=== PATIENT | male | born 1955 | race African-American/Black ===

== ENCOUNTER 2017-01-02 14:52 | Inpatient (IN) | payer OTHER ==
[2017-01-02 18:18] VITALS: BMI 22.1
--- NOTE | 2017-01-02 18:30 | HP ---
CIWA Score - CIWA Score Nausea/Vomitin Muscle Tremors: 3 Anxiety: 3 Agitation: 3 Paroxysmal Sweats: 2 Orientation: 0-Oriented Tacttile Disturbances: 2-Mild Itch/Numbness/Burn Auditory Disturbances: 2-Mild Harshness/Frighten Visual Disturbances: 2-Mild Sensitivity Headache: 2-Mild CIWA-Ar Total Score: 22 Admission ROS BHS - HPI Chief Complaint: i need help to stop drinking alcohol,seen in [facility] last night refer for detox Allergies/Adverse Reactions: Allergies Allergy/AdvReac Type Severity Reaction Status Date / Time iodine Allergy Severe Rash Verified 01/02/17 19:13 Penicillins Allergy Severe Swelling Verified 01/02/17 19:13 History of Present Illness: this 61 years old male with alcohol dependence,withdrawal symptom,last detox 20 years ago seen in [place] last night last seizure on 12/31/16 no significant period of sobriety s/p surgery of spine in 1992,chronic low back pain and neck pain ambulation with cane for 2 years - Ebola screening Have you traveled outside of the country in the last 21 days: No Have you had contact with anyone from an Ebola affected area: No Do you have a fever: No - Review of Systems Constitutional: Loss of Appetite, Malaise, Night Sweats, Changes in sleep, Weakness EENT: reports: Nose Congestion Respiratory: reports: No Symptoms reported Cardiac: reports: Palpitations GI: reports: Diarrhea, Nausea, Vomiting, Abdominal cramping : reports: No Symptoms Reported Musculoskeletal: reports: Back Pain, Muscle Pain, Other (s/p back surgery) Integumentary: reports: Dryness Neuro: reports: Headache, Tremors Endocrine: reports: No Symptoms Reported Hematology: reports: No Symptoms Reported Psychiatric: reports: No Sypmtoms Reported, Judgement Intact, Mood/Affect Appropiate, Anxious, Depressed Patient History - Patient Medical History Hx Anemia: No Hx Asthma: No Hx Chronic Obstructive Pulmonary Disease (COPD): No Hx Cancer: No Hx Cardiac Disorders: No Hx Congestive Heart Failure: No Hx Hypertension: No Hx Hypercholesterolemia: No Hx Pacemaker: No HX Cerebrovascular Accident: No Hx Seizures: Yes (last 12/31/16) Hx Dementia: No Hx Diabetes: No Hx Gastrointestinal Disorders: No Hx Liver Disease: Yes (hepatitis c) Hx Genitourinary Disorders: No Hx Sexually Transmitted Disorders: No Hx Renal Disease (ESRD): No Hx Thyroid Disease: No Hx Human Immunodeficiency Virus (HIV): No (last tested 09/01 negative) Hx Hepatitis C: Yes Hx Depression: Yes (anxiety) Hx Suicide Attempt: No Hx Bipolar Disorder: No Hx Schizophrenia: No Other Medical History: no suicidal,no homicidal,ambulation with cane,frequent falls,low back and n - Patient Surgical History Past Surgical History: Yes Hx Orthopedic Surgery: Yes (back surgery in 1992) - PPD History Previous Implant?: Yes Documented Results: Negative w/o proof Implanted On Prior [facility] Admission?: No PPD to be Administered?: Yes - Smoking Cessation Smoking history: Current every day smoker Have you smoked in the past 12 months: Yes Aproximately how many cigarettes per day: 2 Cigars Per Day: 0 Hx Chewing Tobacco Use: No Initiated information on smoking cessation: Yes 'Breaking Loose' booklet given: 01/02/17 - Substance & Tx. History Hx Alcohol Use: Yes Hx Substance Use: No Substance Use Type: Alcohol Hx Substance Use Treatment: Yes (20 years ago) - Substances Abused Alcohol Route: Oral Frequency: Daily Amount used: 2pints of vodka/20 ozs of beer Age of first use: 13 Date of Last Use: 12/31/16 Family Disease History - Family Disease History Family Disease History: Other: Father (alcohol,) Admission Physical Exam S - Vital Signs Vital Signs: Vital Signs - 24 hr 01/02/17 18:12 Temperature 96 F L Pulse Rate 114 H Respiratory 20 Rate Blood Pressure 182/97 - Physical General Appearance: Yes: Moderate Distress, Tremorous, Irritable, Sweating, Anxious HEENTM: Yes: Normal ENT Inspection, OLEG, Pharynx Normal Respiratory: Yes: Lungs Clear, Normal Breath Sounds, No Respiratory Distress Neck: Yes: Within Normal Limits, Supple, Trachea in good position Breast: Yes: Within Normal Limits Cardiology: Yes: Within Normal Limits, Regular Rhythm, Regular Rate, S1, S2 Abdominal: Yes: Within Normal Limits, Normal Bowel Sounds, Non Tender, Flat, Soft Genitourinary: Yes: Within Normal Limits Back: Yes: Muscle Spasm Musculoskeletal: Yes: Back pain, Muscle Pain Extremities: Yes: Within Normal Limits, Normal Range of Motion, Tremors 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 intact, Fully Oriented, Alert, Motor Strength 5/5 Integumentary: Yes: Dry Lymphatic: Yes: Within Normal Limits - Diagnostic (1) Alcohol dependence with uncomplicated withdrawal Current Visit: Yes Status: Acute (2) Alcohol related seizure Current Visit: Yes Status: Acute (3) Chronic low back pain Current Visit: Yes Status: Acute (4) Chronic neck pain Current Visit: Yes Status: Acute (5) Previous back surgery Current Visit: Yes Status: Acute (6) Hepatitis C Current Visit: Yes Status: Acute (7) Anxiety and depression Current Visit: Yes Status: Acute (8) Use of cane as ambulatory aid Current Visit: Yes Status: Acute (9) Frequent falls Current Visit: Yes Status: Acute Cleared for Admission [facility] - Detox or Rehab [facility] Level of Care: Medically Managed Detox Regimen/Protocol: Librium [facility] Breath Alcohol Content Breath Alcohol Content: 0 Urine Drug Screen - Results Drug Screen Negative: No Urine Drug Screen Results: BZO-Benzodiazepines
[2017-01-02] MEDS ORDERED: ACETAMINOPHEN 325 MG TABLET (FP) PO PRN (18:45)
[2017-01-02] MEDS ORDERED: LOPERAMIDE HCL 2 MG CAPSULE PO PRN (18:45)
[2017-01-02] MEDS ORDERED: MAGNESIUM HYDROX 2400MG/30ML ORAL SUSPENSION 30 ML CUP PO PRN (18:45)
[2017-01-02] MEDS ORDERED: hydrOXYzine PAMOATE 25 MG CAPSULE (FP) PO PRN (18:45)
[2017-01-02] MEDS ORDERED: guaiFENesin/D-METHORPHAN HB 10 ML UNIT-DOSE CUPS PO PRN (18:45)
[2017-01-02] MEDS ORDERED: MAG HYDROX/AL HYDROX/SIMETH 30 ML UNIT-DOSE CUP PO PRN (18:45)
[2017-01-02] MEDS ORDERED: MENTHOL/PHENOL 1 EACH UD MM PRN (18:45)
[2017-01-02] MEDS ORDERED: MAGNESIUM CITRATE 300 ML BOTTLE PO PRN (18:45)
[2017-01-02] MEDS ORDERED: chlordiazePOXIDE HCL 25 MG CAPSULE PO ONE (18:45)
[2017-01-02] MEDS ORDERED: P-EPHED 60MG/TRIPROLIDI 2.5MG TABLET PO PRN (18:45)
[2017-01-02] MEDS: IBUPROFEN 400 MG TABLET (FP) PO PRN (22:51)
[2017-01-02] MEDS: THIAMINE HCL 100 MG TABLET (FP) PO SCH (22:51)
[2017-01-02] MEDS: chlordiazePOXIDE HCL 25 MG CAPSULE PO SCH (22:52)
[2017-01-03] MEDS: chlordiazePOXIDE HCL 25 MG CAPSULE PO SCH ×4 (06:54→23:52)
[2017-01-03] MEDS: PRENATAL VITAMINS W/ FOLIC ACID TABLET (FP) PO SCH (09:52)
[2017-01-03 10:32] LABS: ALBUMIN 3.2 g/dl (3.4-5.0); ANION GAP 8 (8-16); BILIRUBIN,TOTAL 0.6 mg/dL (0.2-1.0); CALCIUM 8.7 mg/dL (8.5-10.1); CO2 30 mmol/L (21-32); COCKROFT - GAULT 74.65; GLUCOSE,RANDOM 108 mg/dL (74-106); SGOT/AST 81 U/L (15-37); SGPT/ALT 53 U/L (12-78); TOT PROT 7.4 g/dl (6.4-8.2)
[2017-01-03 10:33] LABS: ALK PHOS 94 U/L (45-117)
--- NOTE | 2017-01-03 11:06 | EKG ---
Test Reason : Blood Pressure : / mmHG Vent. Rate : 102 BPM Atrial Rate : 102 BPM P-R Int : 160 ms QRS Dur : 080 ms QT Int : 370 ms P-R-T Axes : 058 003 -06 degrees QTc Int : 482 ms SINUS TACHYCARDIA WITH PREMATURE VENTRICULAR OR ABERRANTLY CONDUCTED COMPLEXES SEPTAL INFARCT , AGE UNDETERMINED POOR R WAVE PROGRESSION ABNORMAL ECG NO PREVIOUS ECGS AVAILABLE Confirmed by MD KAYLAN, LORNA ([id number]) on 01/03/2017 11:05:57 AM Referred By: Confirmed By:LORNA KIMBROUGH MD
[2017-01-03 11:18] LABS: MCH 27.2 pg (25.7-33.7); MCHC 32.1 g/dl (32.0-35.9); MEAN CELL VOLUME 84.8 fl (80-96); MEAN PLT VOLUME 8.6 fl (7.5-11.1); PLATELET COUNT 426 K/MM3 (134-434); RDW 20.8 % (11.9-15.9); WHITE BLOOD COUNT 7.6 K/mm3 (4.0-10.0)
[2017-01-03 11:28] LABS: HIV 1 & 2 AB NEGATIVE; HIV 1 AGp24 NEGATIVE
--- NOTE | 2017-01-03 11:40 | PN ---
[facility] CIWA - CIWA Score Nausea/Vomitin Muscle Tremors: 3 Anxiety: 3 Agitation: 2 Paroxysmal Sweats: 1-Minimal Palms Moist Orientation: 0-Oriented Tacttile Disturbances: 1-Very Mild Itch/Numbness Auditory Disturbances: 1-Very Mild Visual Disturbances: 1-Very Mild Sensitivity Headache: 2-Mild CIWA-Ar Total Score: 17 BHS Progress Note (SOAP) Subjective: ALERT,IRRITABLE,ANXIOUS,INTERRUPTED SLEEP,TREMOR Objective: 01/03/17 11:36 Vital Signs Temperature 98 F 01/03/17 09:37 Pulse Rate 114 H 01/03/17 09:37 Respiratory Rate 20 01/03/17 09:37 Blood Pressure 148/117 01/03/17 09:37 O2 Sat by Pulse Oximetry (%) EKG SINUS TACHYCARDIA 102/MIN NO CHEST PAIN,NO SOB,NO DIZZINESS Laboratory Last Values WBC 7.6 K/mm3 (4.0-10.0) 01/03/17 07:40 RBC 3.37 M/mm3 (4.00-5.60) L 01/03/17 07:40 Hgb 9.2 GM/dL (11.7-16.9) L 01/03/17 07:40 Hct 28.6 % (35.4-49) L 01/03/17 07:40 MCV 84.8 fl (80-96) 01/03/17 07:40 MCHC 32.1 g/dl (32.0-35.9) 01/03/17 07:40 RDW 20.8 % (11.9-15.9) H 01/03/17 07:40 Plt Count 426 K/MM3 (134-434) 01/03/17 07:40 MPV 8.6 fl (7.5-11.1) 01/03/17 07:40 Sodium 140 mmol/L (136-145) 01/03/17 07:40 Potassium 4.6 mmol/L (3.5-5.1) 01/03/17 07:40 Chloride 102 mmol/L (98-107) 01/03/17 07:40 Carbon Dioxide 30 mmol/L (21-32) 01/03/17 07:40 Anion Gap 8 (8-16) 01/03/17 07:40 BUN 14 mg/dL (7-18) 01/03/17 07:40 Creatinine 1.0 mg/dL (0.7-1.3) 01/03/17 07:40 Creat Clearance w eGFR > 60 (>60) 01/03/17 07:40 Random Glucose 108 mg/dL (74-106) H 01/03/17 07:40 Calcium 8.7 mg/dL (8.5-10.1) 01/03/17 07:40 Total Bilirubin 0.6 mg/dL (0.2-1.0) 01/03/17 07:40 AST 81 U/L (15-37) H 01/03/17 07:40 ALT 53 U/L (12-78) 01/03/17 07:40 Alkaline Phosphatase 94 U/L (45-117) 01/03/17 07:40 Total Protein 7.4 g/dl (6.4-8.2) 01/03/17 07:40 Albumin 3.2 g/dl (3.4-5.0) L 01/03/17 07:40 HIV 1&2 Antibody Screen Negative 01/03/17 07:40 HIV P24 Antigen Negative 01/03/17 07:40 Assessment: 01/03/17 11:38 WITHDRAWAL SYMPTOM HISTORY OF ANEMIA Plan: WILL CONTINUE DETOX,FALL PRECAUTION,FERROUS SULFATE 325 MGS PO BID,WHEELCHAIR AMBULATION NEEDED
[2017-01-03 12:27] LABS: ANISOCYTOSIS 2+; HYPOCHROMIA 3+; MICROCYTOSIS 1+; TARGET CELLS 2+
[2017-01-03] MEDS: chlordiazePOXIDE HCL 25 MG CAPSULE PO PRN (12:33)
[2017-01-03] MEDS: FERROUS SO4 325 MG TABLET (FP) PO SCH ×2 (12:34→22:45)
[2017-01-03 18:09] LABS: URINE APPEARANCE CLOUDY; URINE BILIRUBIN NEGATIVE (NEGATIVE); URINE BLOOD 1+ (NEGATIVE); URINE COLOR DKYELLOW; URINE GLUCOSE (UA) NEGATIVE (NEGATIVE); URINE KETONE NEGATIVE (NEGATIVE); URINE LEUK ESTERASE 3+ (NEGATIVE); URINE NITRITE NEGATIVE (NEGATIVE); URINE PROTEIN 1+ (NEGATIVE); URINE UROBILINOGEN 4.0 E.U/dl E.U./dl (0.2-1.0)
[2017-01-03 18:24] LABS: URINE BACTERIA MODERATE /hpf (NONE SEEN); URINE MUCUS RARE; URINE RBC 274 /hpf (0-3); URINE WBC 1354 /hpf (3-5)
[2017-01-03] MEDS: THIAMINE HCL 100 MG TABLET (FP) PO SCH (22:45)
[2017-01-04] MEDS: chlordiazePOXIDE HCL 25 MG CAPSULE PO SCH ×3 (06:30→18:00)
[2017-01-04] MEDS: SULFAMETHOXAZOLE/TRIMETHOPRIM 800MG/160MG D.S. TABLET PO SCH ×2 (10:26→22:36)
[2017-01-04] MEDS: PRENATAL VITAMINS W/ FOLIC ACID TABLET (FP) PO SCH (10:26)
[2017-01-04] MEDS: chlordiazePOXIDE HCL 25 MG CAPSULE PO PRN (10:26)
[2017-01-04] MEDS: FERROUS SO4 325 MG TABLET (FP) PO SCH ×2 (10:28→22:36)
--- NOTE | 2017-01-04 11:20 | PN ---
S CIWA - CIWA Score Nausea/Vomitin Muscle Tremors: 3 Anxiety: 2 Agitation: 2 Paroxysmal Sweats: 1-Minimal Palms Moist Orientation: 0-Oriented Tacttile Disturbances: 1-Very Mild Itch/Numbness Auditory Disturbances: 1-Very Mild Visual Disturbances: 1-Very Mild Sensitivity Headache: 2-Mild CIWA-Ar Total Score: 16 S Progress Note (SOAP) Subjective: ALERT,IRRITABLE,ANXIOUS,INTERRUPTED SLEEP,TREMOR Objective: 01/04/17 11:16 Vital Signs Temperature 98.4 F 01/04/17 09:54 Pulse Rate 104 H 01/04/17 09:54 Respiratory Rate 18 01/04/17 09:54 Blood Pressure 133/80 01/04/17 09:54 O2 Sat by Pulse Oximetry (%) Laboratory Last Values WBC 7.6 K/mm3 (4.0-10.0) 01/03/17 07:40 RBC 3.37 M/mm3 (4.00-5.60) L 01/03/17 07:40 Hgb 9.2 GM/dL (11.7-16.9) L 01/03/17 07:40 Hct 28.6 % (35.4-49) L 01/03/17 07:40 MCV 84.8 fl (80-96) 01/03/17 07:40 MCHC 32.1 g/dl (32.0-35.9) 01/03/17 07:40 RDW 20.8 % (11.9-15.9) H 01/03/17 07:40 Plt Count 426 K/MM3 (134-434) 01/03/17 07:40 MPV 8.6 fl (7.5-11.1) 01/03/17 07:40 Hypochromic-Microcytic 3+ 01/03/17 07:40 Anisocytosis 2+ 01/03/17 07:40 Microcytosis 1+ 01/03/17 07:40 Target Cells 2+ 01/03/17 07:40 Sodium 140 mmol/L (136-145) 01/03/17 07:40 Potassium 4.6 mmol/L (3.5-5.1) 01/03/17 07:40 Chloride 102 mmol/L (98-107) 01/03/17 07:40 Carbon Dioxide 30 mmol/L (21-32) 01/03/17 07:40 Anion Gap 8 (8-16) 01/03/17 07:40 BUN 14 mg/dL (7-18) 01/03/17 07:40 Creatinine 1.0 mg/dL (0.7-1.3) 01/03/17 07:40 Creat Clearance w eGFR > 60 (>60) 01/03/17 07:40 Random Glucose 108 mg/dL (74-106) H 01/03/17 07:40 Calcium 8.7 mg/dL (8.5-10.1) 01/03/17 07:40 Total Bilirubin 0.6 mg/dL (0.2-1.0) 01/03/17 07:40 AST 81 U/L (15-37) H 01/03/17 07:40 ALT 53 U/L (12-78) 01/03/17 07:40 Alkaline Phosphatase 94 U/L (45-117) 01/03/17 07:40 Total Protein 7.4 g/dl (6.4-8.2) 01/03/17 07:40 Albumin 3.2 g/dl (3.4-5.0) L 01/03/17 07:40 Urine Color Dkyellow 01/03/17 17:00 Urine Appearance Cloudy 01/03/17 17:00 Urine pH 7.0 (5.0-8.0) 01/03/17 17:00 Ur Specific [place] 1.010 (1.005-1.025) 01/03/17 17:00 Urine Protein 1+ (NEGATIVE) H 01/03/17 17:00 Urine Glucose (UA) Negative (NEGATIVE) 01/03/17 17:00 Urine Ketones Negative (NEGATIVE) 01/03/17 17:00 Urine Blood 1+ (NEGATIVE) H 01/03/17 17:00 Urine Nitrite Negative (NEGATIVE) 01/03/17 17:00 Urine Bilirubin Negative (NEGATIVE) 01/03/17 17:00 Urine Urobilinogen 4.0 e.u/dl E.U./dl (0.2-1.0) 01/03/17 17:00 Ur Leukocyte Esterase 3+ (NEGATIVE) H 01/03/17 17:00 Urine RBC 274 /hpf (0-3) 01/03/17 17:00 Urine WBC 1354 /hpf (3-5) 01/03/17 17:00 Ur Epithelial Cells Rare /hpf (FEW) 01/03/17 17:00 Urine Bacteria Moderate /hpf (NONE SEEN) 01/03/17 17:00 Urine Mucus Rare 01/03/17 17:00 RPR Titer Nonreactive (NONREACTIVE) 01/03/17 07:40 HIV 1&2 Antibody Screen Negative 01/03/17 07:40 HIV P24 Antigen Negative 01/03/17 07:40 Assessment: 01/04/17 11:17 WITHDRAWAL SYMPTOM Plan: CONTINUE DETOX,URINE FOR C/S UTI,START ON BACTRIM DS 1 TAB PO BID,ENCOURAGE ORAL FLUID, ON IRON,SERUM IRON,TIBC,RETICULOCYTE COUNT,FOLIC ACID
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
[2017-01-04] MEDS: chlordiazePOXIDE 5 MG CAPSULE PO SCH (22:36)
[2017-01-04] MEDS: THIAMINE HCL 100 MG TABLET (FP) PO SCH (22:36)
[2017-01-05] MEDS: chlordiazePOXIDE 5 MG CAPSULE PO SCH ×3 (05:35→19:11)
[2017-01-05] MEDS: PRENATAL VITAMINS W/ FOLIC ACID TABLET (FP) PO SCH (10:48)
[2017-01-05] MEDS: SULFAMETHOXAZOLE/TRIMETHOPRIM 800MG/160MG D.S. TABLET PO SCH ×2 (10:49→22:44)
[2017-01-05] MEDS: FERROUS SO4 325 MG TABLET (FP) PO SCH ×2 (10:50→22:44)
--- NOTE | 2017-01-05 12:01 | PN ---
S Progress Note (SOAP) Subjective: ALERT,IRRITABLE,ANXIOUS,INTERRUPTED SLEEP,TREMOR Objective: 01/05/17 11:59 Vital Signs Temperature 97.5 F L 01/05/17 10:27 Pulse Rate 106 H 01/05/17 10:27 Respiratory Rate 18 01/05/17 10:27 Blood Pressure 134/88 01/05/17 10:27 O2 Sat by Pulse Oximetry (%) Assessment: 01/05/17 12:00 WITHDRAWAL SYMPTOM Plan: CONTINUE DETOX,AMBULATION WITH CANE
[2017-01-05] MEDS: diphenhydrAMINE HCL 50 MG CAPSULE PO PRN (22:43)
[2017-01-05] MEDS: chlordiazePOXIDE HCL 10 MG CAPSULE PO SCH (22:44)
[2017-01-05] MEDS: THIAMINE HCL 100 MG TABLET (FP) PO SCH (22:44)
[2017-01-06 06:06] LABS: SERUM IRON 27 ug/dL (38-169); TOTAL IRON BINDING CAPACITY 315 ug/dL (250-450); UIBC 288 ug/dL (111-343)
[2017-01-06] MEDS: chlordiazePOXIDE HCL 10 MG CAPSULE PO SCH ×3 (07:55→19:12)
[2017-01-06] MEDS: FERROUS SO4 325 MG TABLET (FP) PO SCH ×2 (10:51→22:39)
[2017-01-06] MEDS: SULFAMETHOXAZOLE/TRIMETHOPRIM 800MG/160MG D.S. TABLET PO SCH ×2 (10:51→22:39)
[2017-01-06] MEDS: PRENATAL VITAMINS W/ FOLIC ACID TABLET (FP) PO SCH (10:52)
--- NOTE | 2017-01-06 11:58 | PN ---
S Progress Note (SOAP) Subjective: interrupted sleep, sweats, shakes , Objective: 01/06/17 11:56 Vital Signs Temperature 97.3 F L 01/06/17 10:41 Pulse Rate 99 H 01/06/17 10:41 Respiratory Rate 20 01/06/17 10:41 Blood Pressure 143/73 01/06/17 10:41 O2 Sat by Pulse Oximetry (%) Laboratory Tests 01/03/17 01/03/17 01/03/17 07:40 07:40 07:40 WBC 7.6 RBC 3.37 L Hgb 9.2 L Hct 28.6 L MCV 84.8 MCHC 32.1 RDW 20.8 H Plt Count 426 MPV 8.6 Hypochromic-Microcytic 3+ Anisocytosis 2+ Microcytosis 1+ Target Cells 2+ Retic Count Sodium 140 Potassium 4.6 Chloride 102 Carbon Dioxide 30 Anion Gap 8 BUN 14 Creatinine 1.0 Creat Clearance w eGFR > 60 Random Glucose 108 H Calcium 8.7 Iron TIBC Iron Saturation Total Bilirubin 0.6 AST 81 H ALT 53 Alkaline Phosphatase 94 Total Protein 7.4 Albumin 3.2 L Serum Folate Urine Color Urine Appearance Urine pH Ur Specific [place] Urine Protein Urine Glucose (UA) Urine Ketones Urine Blood Urine Nitrite Urine Bilirubin Urine Urobilinogen Ur Leukocyte Esterase Urine RBC Urine WBC Ur Epithelial Cells Urine Bacteria Urine Mucus RPR Titer Nonreactive HIV 1&2 Antibody Screen HIV P24 Antigen 01/03/17 01/03/17 01/05/17 07:40 17:00 07:00 WBC RBC Hgb Hct MCV MCHC RDW Plt Count MPV Hypochromic-Microcytic Anisocytosis Microcytosis Target Cells Retic Count Sodium Potassium Chloride Carbon Dioxide Anion Gap BUN Creatinine Creat Clearance w eGFR Random Glucose Calcium Iron 27 L TIBC 315 Iron Saturation 9 L Total Bilirubin AST ALT Alkaline Phosphatase Total Protein Albumin Serum Folate Urine Color Dkyellow Urine Appearance Cloudy Urine pH 7.0 Ur Specific [place] 1.010 Urine Protein 1+ H Urine Glucose (UA) Negative Urine Ketones Negative Urine Blood 1+ H Urine Nitrite Negative Urine Bilirubin Negative Urine Urobilinogen 4.0 e.u/dl Ur Leukocyte Esterase 3+ H Urine RBC 274 Urine WBC 1354 Ur Epithelial Cells Rare Urine Bacteria Moderate Urine Mucus Rare RPR Titer HIV 1&2 Antibody Screen Negative HIV P24 Antigen Negative 01/05/17 01/05/17 07:00 07:00 WBC RBC Hgb Hct MCV MCHC RDW Plt Count MPV Hypochromic-Microcytic Anisocytosis Microcytosis Target Cells Retic Count 2.20 H Sodium Potassium Chloride Carbon Dioxide Anion Gap BUN Creatinine Creat Clearance w eGFR Random Glucose Calcium Iron TIBC Iron Saturation Total Bilirubin AST ALT Alkaline Phosphatase Total Protein Albumin Serum Folate 16 Urine Color Urine Appearance Urine pH Ur Specific [place] Urine Protein Urine Glucose (UA) Urine Ketones Urine Blood Urine Nitrite Urine Bilirubin Urine Urobilinogen Ur Leukocyte Esterase Urine RBC Urine WBC Ur Epithelial Cells Urine Bacteria Urine Mucus RPR Titer HIV 1&2 Antibody Screen HIV P24 Antigen pt aox3 but with tremors Assessment: 01/06/17 11:56 withdrawal sx;s -will keep pt an additional day because of termors and anemia . 01/06/17 11:57 Plan: cont. detox increase fluids cont fe cont librium d/c in am
[2017-01-06] MEDS: diphenhydrAMINE HCL 50 MG CAPSULE PO PRN (22:39)
[2017-01-06] MEDS: THIAMINE HCL 100 MG TABLET (FP) PO SCH (22:39)
[2017-01-07] MEDS: IBUPROFEN 400 MG TABLET (FP) PO PRN (06:30)
[2017-01-07 06:37] VITALS: BP 133/73; PULSE 84; TEMP 96.6
--- NOTE | 2017-01-07 08:26 | DS ---
[facility] Detox Discharge Summary Admission Date: 01/02/17 Discharge Date: 01/07/17 - History Present History: Alcohol Dependence - Physical Exam Results Vital Signs: Vital Signs Temperature 96.6 F L 01/07/17 06:00 Pulse Rate 84 01/07/17 06:00 Respiratory Rate 18 01/07/17 06:00 Blood Pressure 133/73 01/07/17 06:00 O2 Sat by Pulse Oximetry (%) - Treatment Hospital Course: Detox Protocol Followed, Detoxed Safely, Responded well, Discharged Condition Good, Rehab Referral Accepted - Medication Discharge Medications: Ambulatory Orders NK [No Known Home Medication] 01/02/17 - Diagnosis (1) Alcohol dependence with uncomplicated withdrawal Current Visit: Yes Status: Chronic (2) Alcohol related seizure Current Visit: Yes Status: Acute (3) Alcohol-induced mood disorder Current Visit: Yes Status: Acute (4) Anxiety and depression Current Visit: Yes Status: Acute (5) Insomnia Current Visit: Yes Status: Acute (6) Chronic low back pain Current Visit: Yes Status: Chronic Qualifiers: Back pain laterality: unspecified Sciatica presence: unspecified whether sciatica present Qualified Code(s): M54.5 - Low back pain; G89.29 - Other chronic pain (7) Chronic neck pain Current Visit: Yes Status: Chronic (8) Frequent falls Current Visit: Yes Status: Chronic (9) Hepatitis C Current Visit: Yes Status: Chronic Qualifiers: Viral hepatitis chronicity: chronic Hepatic coma status: without hepatic coma Qualified Code(s): B18.2 - Chronic viral hepatitis C (10) Use of cane as ambulatory aid Current Visit: Yes Status: Chronic (11) Previous back surgery Current Visit: No Status: Chronic - AMA Did Patient Leave Against Medical Advice: No
[2017-01-07] MEDS: SULFAMETHOXAZOLE/TRIMETHOPRIM 800MG/160MG D.S. TABLET PO SCH (10:52)
[2017-01-07] MEDS: PRENATAL VITAMINS W/ FOLIC ACID TABLET (FP) PO SCH (10:52)
[2017-01-07] MEDS: FERROUS SO4 325 MG TABLET (FP) PO SCH (10:52)
== END 2017-01-07 11:38 | disposition home or self-care (01) | DRG 775 ==
LOC: YASAS 14:52 → Y6N 18:04
PROVIDERS: ADMIT Internal Medicine Addiction Medicine; ATTEND Internal Medicine Addiction Medicine
PROC: HZ2ZZZZ Detoxification Services for Substance Abuse Treatment (ICD-10-PCS; principal; 2017-01-02)
DX: F10.230 Alcohol dependence with withdrawal, uncomplicated (principal); F10.24 Alcohol dependence with alcohol-induced mood disorder; F41.8 Other specified anxiety disorders; R00.0 Tachycardia, unspecified; Z72.0 Tobacco use; G47.00 Insomnia, unspecified; M54.5 Low back pain; M54.2 Cervicalgia; G89.29 Other chronic pain; R29.6 Repeated falls; M19.90 Unspecified osteoarthritis, unspecified site; B18.2 Chronic viral hepatitis C; Z99.89 Dependence on other enabling machines and devices; Z86.69 Personal history of other diseases of the nervous system and sense organs
CPT/HCPCS: 36415; 80053; 81003; 81015; 82746; 83540; 83550; 85027; 85044; 86593; 87086; 87389; 93005; 93010